=== PATIENT | female | born 1980 | race American Indian/Alaskan Native ===

== ENCOUNTER 2017-10-05 07:30 | Emergency (ER) | payer SELFPAY ==
[2017-10-05] MEDS ORDERED: Sodium Chloride 0.9% 10 ML Syringe FLUSH PRN (08:02)
[2017-10-05] MEDS ORDERED: HYDROmorphone 0.5 MG/0.5 ML Syringe IVPUSH ONE (08:02)
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
[2017-10-05] MEDS ORDERED: cefTRIAXone 1 GM in Sodium Chloride 0.9% 100 ML IV ONE (08:35)
--- NOTE | 2017-10-05 10:42 | US ---
Addendum: Additional images were obtained of the right inguinal region. Multiple hypoechoic areas are again seen within the right inguinal region. These are most likely due to multiple enlarged lymph nodes. Larger hypoechoic area shows a definite central blood vessel on additional study and this is most likely due to more confluent adenopathy rather than pseudoaneurysm, abscess or hematoma as initially thought. Superficial subcutaneous fat is again echogenic. Etiology for these abnormal lymph nodes are not apparent by this study. --- Addendum1 above dictated on [10/05/2017 13:35] by [Geeta Mcnamara, Oli Jay] --- --- Addendum1 above signed on [10/05/2017 13:36] by [Geeta Mcnamara, Oli Jay] --- --- Original report below dictated on [10/05/2017 10:37] by [Geeta Mcnamara, Oli Jay] --- --- Original report below signed on [10/05/2017 10:39] by [Geeta Mcnamara, Oli Jay] --- Right lower extremity deep venous ultrasound: Duplex and color flow imaging was obtained of the right common femoral, proximal greater saphenous, superficial femoral, popliteal, posterior tibial and peroneal veins. Left common femoral vein was also evaluated. Fluid-filled collection identified in area described as right inguinal lump. Associated skin thickening and echogenic subcutaneous fat. This finding measures around 6.8 cm in greatest dimensions. Difficult to exclude a thrombosed pseudoaneurysm versus simple hematoma or abscess. Mildly enlarged lymph nodes are seen in this area. No venous thrombosis is seen. Impression: 1. Fluid-filled collection in area of right inguinal lump. This is likely chronic causing inflammatory change with echogenic subcutaneous fat and associated skin thickening as well as surrounding lymphadenopathy. Possible blood flow within a small portion of this fluid-filled collection is seen raising the possibility of thrombosed pseudoaneurysm. Differential also includes abscess as well and simple hematoma. 2. No evidence of deep venous thrombosis within the right lower extremity or left common femoral vein. Diagnostic code #3 --- Addendum1 signed ---
== END 2017-10-05 13:00 ==
LOC: JD.ED 07:30
DX: I72.9 Aneurysm of unspecified site (principal); L03.115 Cellulitis of right lower limb; F17.210 Nicotine dependence, cigarettes, uncomplicated
CPT/HCPCS: 36415; 80053; 85025; 86140; 87040; 93971; 96365; 96367; 96375; 99285; J0696; J1170; J3370; J7030; J7050; 99284